=== PATIENT | male | born 1960 | race Caucasian/White ===

== ENCOUNTER → 2018-07-20 | Outpatient (CLI) | payer BC ==
--- NOTE | 2018-07-20 12:58 | Diagnostic Imaging Report ---
INDICATION: Dry cough. FINDINGS: The lungs are clear. The heart size and vascularity are normal. There is no effusion or pneumothorax. IMPRESSION: No acute appearing abnormality. Dictated by: Dictated on workstation # [id number]
== END ==
LOC: RAD FS 12:42
PROVIDERS: ATTEND Family Medicine
DX: K21.9 Gastro-esophageal reflux disease without esophagitis (principal)
CPT/HCPCS: 71046

== ENCOUNTER → 2019-05-12 | Outpatient (CLI) | payer BC ==
[2019-05-12 10:46] LABS: ALKALINE PHOSPHATASE 66 U/L (40-136); BILIRUBIN,TOTAL 0.7 MG/DL (0.1-1.0); BUN/CREATININE RATIO 20; CALCIUM 9.9 MG/DL (8.5-10.1); CARBON DIOXIDE 25 MMOL/L (21-32); CHLORIDE 100 MMOL/L (98-107); CREATININE SERUM 0.87 MG/DL (0.60-1.30); GFR ESTIMATED > 60; GLUCOSE 106 MG/DL (70-105); POTASSIUM 4.5 MMOL/L (3.6-5.0); SODIUM 138 MMOL/L (135-145)
[2019-05-12 10:47] LABS: ALANINE AMINOTRANSFERASE 34 U/L (0-55); ALBUMIN 4.3 GM/DL (3.2-4.5); TOTAL PROTEIN 7.9 GM/DL (6.4-8.2)
[2019-05-12 15:18] LABS: CHOLESTEROL 140 MG/DL (< 200); HDL CHOLESTEROL 33 MG/DL (40-60); TRIGLYCERIDES 85 MG/DL (<150); VLDL CHOLESTEROL 17 MG/DL (5-40)
== END ==
LOC: LAB FS 08:27
PROVIDERS: ATTEND Family Medicine
DX: Z00.00 Encounter for general adult medical examination without abnormal findings (principal)
CPT/HCPCS: 36415; 80053; 80061

== ENCOUNTER → 2019-05-12 | Outpatient (CLI) | payer BC ==
--- NOTE | 2019-05-12 14:12 | Diagnostic Imaging Report ---
CLINICAL HISTORY: Left heel pain for one week. COMPARISON: None TECHNIQUE: 2 views of the left foot. FINDINGS: There is no acute fracture or dislocation of the left foot. Alignment is anatomic. The imaged joint spaces are preserved. A bone spur is noted at the attachment of the Achilles tendon on the calcaneus. The surrounding soft tissues are unremarkable. IMPRESSION: 1. No acute fracture or dislocation in the left foot. Dictated by: Dictated on workstation # [id number]
== END ==
LOC: RAD FS 11:53
PROVIDERS: ATTEND Family Medicine
DX: M79.672 Pain in left foot (principal)
CPT/HCPCS: 73620

== ENCOUNTER → 2019-05-12 | Outpatient (CLI) | payer BC ==
[2019-05-12 15:19] LABS: PHOSPHORUS 3.8 MG/DL (2.3-4.7)
[2019-05-12 15:56] LABS: ALBUMIN 4.5 GM/DL (3.2-4.5); BUN/CREATININE RATIO 18; CALCIUM 9.7 MG/DL (8.5-10.1); CARBON DIOXIDE 25 MMOL/L (21-32); CHLORIDE 103 MMOL/L (98-107); CREATININE SERUM 0.91 MG/DL (0.60-1.30); GFR ESTIMATED > 60; GLUCOSE 98 MG/DL (70-105); MAGNESIUM 1.9 MG/DL (1.6-2.4); POTASSIUM 4.4 MMOL/L (3.6-5.0); SODIUM 138 MMOL/L (135-145)
== END ==
LOC: LAB FS 08:06
PROVIDERS: ATTEND Internal Medicine Critical Care Medicine
DX: I10 Essential (primary) hypertension (principal)
CPT/HCPCS: 36415; 80069; 83735

== ENCOUNTER 2019-10-10 05:34 | Outpatient (CLI) | payer BC ==
[~2019-10-10] VITALS: Ht 180 cm; Wt 121.8 kg
[2019-10-10] MEDS ORDERED: PRAV40TA2 PO (12:11)
[2019-10-10] MEDS ORDERED: HYDR12.56 PO (12:11)
[2019-10-10] MEDS ORDERED: MULT-1102 PO (12:11)
[2019-10-10] MEDS ORDERED: EZET10TA17 PO (12:11)
[2019-10-10] MEDS ORDERED: AMLO5TAB9 PO (12:11)
[2019-10-10] MEDS ORDERED: ASPI-999 PO (12:11)
== END 2019-10-10 12:24 ==
LOC: PREOP 05:34
PROVIDERS: ATTEND Surgery
DX: Z01.818 Encounter for other preprocedural examination (principal); K42.9 Umbilical hernia without obstruction or gangrene

== ENCOUNTER 2019-10-13 11:28 | Day surgery (SDC) | payer BC ==
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
[~2019-10-13] VITALS: Ht 180 cm; Wt 121.0 kg
[2019-10-13] VITALS (9 sets, daily range): BP systolic 129–180; BP diastolic 73–87
[~2019-10-13 11:28] MED LIST: AMLO5TAB9 PO; ASPI-999 PO; EZET10TA17 PO; HYDR12.56 PO; MULT-1102 PO; PRAV40TA2 PO
--- NOTE | 2019-10-13 11:49 | Progress Note-Pre Operative ---
Pre-Operative Progress Note H&P Reviewed The H&P was reviewed, patient examined and no changes noted. Date Seen by Provider: Oct 13, 2019 Time Seen by Provider: 11:30 Date H&P Reviewed: Oct 13, 2019 Time H&P Reviewed: 11:30 Pre-Operative Diagnosis: umbilical hernia MAHESH FALK MD Oct 13, 2019 11:49
[2019-10-13] MEDS ORDERED: HYDR-3817 PO (11:51)
--- NOTE | 2019-10-13 11:51 | Discharge Inst-Surgical ---
D/C Lap Instructions-DEYA New, Converted, or Re-Newed RX: RX on Chart Follow Up Appt in 2 weeks Activity as tolerated No driving for 24 hours No driving while on pain medications Incentive Spirometry use every 2 hours while awake Regular Diet Symptoms to Report: Fever over 101 degree F, Nausea/Vomiting Infection Signs and Symptoms to report: Increased redness, Foul odor of wound, Increased drainage Bathing instructions: May shower Operative Area Clean/Dry; Keep incision clean/dry If any problems/questions: Contact your physician or go to Emergency Room MAHESH FALK MD Oct 13, 2019 11:51
[2019-10-13] MEDS ORDERED: ACETAMINOPHEN 325 MG TABLET PO PRN (12:00)
[2019-10-13] MEDS ORDERED: ceFAZolin 2 GM IV Premixed 50 ML IV ONE (12:00)
[2019-10-13] MEDS ORDERED: ONDANSETRON 4 MG/2 ML (SDV) Z0FRAN IVP PRN ×2 (12:00→16:15)
[2019-10-13] MEDS ORDERED: morphine INJ 10 MG/ML 1ML (SYR OR VIAL) IVP PRN ×2 (12:00)
[2019-10-13] MEDS ORDERED: MIDAZOLAM 2 MG/2 ML (VERSED) VIAL ONE ×2 (12:10→13:40)
[2019-10-13] MEDS ORDERED: LIDOCAINE PF 1% 5 ML (XYLOCAINE) AMP ONE (12:20)
--- OUTSIDE RECORDS SUMMARY | 2019-10-13 12:23 | XMS REPORT | Continuity of Care Document ---
Author Organization Unknown Address Unknown Phone Unavailable Allergies Active Description Code Type Severity Reaction Onset Reported/Identified Relationship to Patient Clinical Status Yes niacin [id number] Drug Allergy Mild RASH 10/10/2019 Medications There is no data. Problems Date Dx Coded Attending Type Code Diagnosis Diagnosed By 07/21/2018 MEDARDO BETHEA MD, Ot K21.9 GASTRO-ESOPHAGEAL REFLUX DISEASE WITHOUT 08/05/2018 MEDARDO BETHEA MD, Ot K21.9 GASTRO-ESOPHAGEAL REFLUX DISEASE WITHOUT 05/25/2019 EVERARDO MCKEON MD Ot I10 ESSENTIAL (PRIMARY) HYPERTENSION 05/25/2019 BEBA SY MD, Ot Z00.00 ENCNTR FOR GENERAL ADULT MEDICAL EXAM W/ 06/06/2019 BEBA SY MD, Ot M79.672 PAIN IN LEFT FOOT 08/23/2019 EVERARDO MCKEON MD Ot I10 ESSENTIAL (PRIMARY) HYPERTENSION 10/12/2019 MAHESH FALK MD Ot K42.9 UMBILICAL HERNIA WITHOUT OBSTRUCTION OR 10/12/2019 MAHESH FALK MD Ot Z01.81 8 ENCOUNTER FOR OTHER PREPROCEDURAL EXAMIN Procedures There is no data. Results Test Result Range Serum or plasma renal function panel (Na , K, Cl, CO2, BUN, Cr, glucose,Ca, phos, alb) - 05/12/19 08:40 Serum or plasma sodium measurement (moles/volume) 138 mmol/L 135-145 Serum or plasma potassium measurement (moles/volume) 4.4 mmol/L 3.6-5.0 Serum or plasma chloride measurement (moles/volume) 103 mmol/L 98-107 Carbon dioxide 25 mmol/L 21-32 Serum or plasma anion gap determination (moles/volume) 10 mmol/L 5-14 Serum or plasma urea nitrogen measurement (mass/volume ) 16 mg/dL 7-18 Serum or plasma creatinine measurement (mass/volume) 0.91 mg/dL 0.60-1.30 Serum or plasma urea nitrogen/creatinine mass ratio 18 NRG Serum or plasma creatinine measurement w ith calculation of estimated glomerular filtration rate > NRG Serum or plasma glucose measurement (mass/volume) 98 mg/dL 70-105 Serum or plasma calcium measurement (mass/volume) 9.7 mg/dL 8.5-10.1 Serum or plasma albumin measurement (mass/volume) 4.5 g/dL 3.2-4.5 Serum or plasma phosphate measurement (mass/volume) 3.8 mg/dL 2.3-4.7 Magnesium - 05/12/19 08:40 Magnesium 1.9 mg/dL 1.6-2.4 Encounters ACCT No. Visit Date/Time Discharge Status Pt. Type Provider Facility Loc./Unit Complaint [id number] 10/05/2018 11:30:00 10/05/2018 23:59: 59 CLS Outpatient [facility] [id number] 10/10/2019 05:34:00 12:24:00 DIS Outpatient MAHESH FALK MD [facility] PREOP UMBILICAL HERNIA [id number] 05/12/2019 11:53:00 23:59:59 CLS Outpatient BEBA SY MD [facility] RAD FS PAIN IN LEFT HEEL [id number] 05/12/2019 08:27:00 23:59:59 CLS Outpatient BEBA SY MD [facility] LAB FS ANNUAL PHYSICAL EXAM [id number] 05/12/2019 08:06:00 23:59:59 CLS Outpatient EVERARDO MCKEON MD [facility] LAB FS HYPERTENSION [id number] 07/20/2018 12:42:00 23:59:59 CLS Outpatient MEDARDO BETHEA MD [facility] RAD FS K21.9 [id number] 10/13/2019 10:45:00 P EN Preadmit MAHESH FALK MD [facility] [place] SDC UMBILICAL HERNIA
[2019-10-13] MEDS: LACTATED RINGERS 1,000 ML IV PRN ×2 (12:27→15:55)
[2019-10-13] MEDS ORDERED: BUP/EPI 0.5% 1:200,000 (MARCAINE) 10ML VIAL IJ ONE (12:35)
[2019-10-13] MEDS ORDERED: fentaNYL INJECTION 100 MCG/2 ML AMP ONE ×2 (13:39→13:42)
[2019-10-13] MEDS ORDERED: ONDANSETRON 4 MG/2 ML (SDV) Z0FRAN ONE (13:49)
[2019-10-13] MEDS ORDERED: SEVOFLURANE (ULTANE) 15 ML INHAL SOLN ONE ×4 (13:50→15:58)
[2019-10-13] MEDS ORDERED: ROCURONIUM 10 MG/ML 5 ML SYRINGE IV ONE (15:44)
[2019-10-13] MEDS ORDERED: SUCCINYLCHOLINE INJ 100 MG/5 ML SYR ONE (15:44)
--- NOTE | 2019-10-13 15:46 | Progress Note-Post Operative ---
Post-Operative Progess Note Surgeon (s)/Material Mixer (s) Surgeon MAHESH FALK MD Material Mixer: montse boyd MAIL DELIVERER Pre-Operative Diagnosis umbilical hernia Post-Operative Diagnosis same Procedure & Operative Findings Date of Procedure 10/13/19 Procedure Performed/Findings umbilical hernia repair with mesh. Anesthesia Type get Estimated Blood Loss Estimated blood loss (mL): minimal Specimens/Packing Specimens Removed none MAHESH FALK MD Oct 13, 2019 15:46
[2019-10-13] MEDS ORDERED: GLYCOPYRROLATE 0.2 MG/ML (ROBINUL) 2 ML VIAL ONE (15:58)
[2019-10-13] MEDS ORDERED: PROPOFOL INJECTION 50 ML IV ONE (15:58)
[2019-10-13] MEDS ORDERED: NEOSTIGMINE 3 MG/3 ML VIAL ONE (15:58)
[2019-10-13] MEDS ORDERED: LIDOCAINE PF 2% 5 ML (XYLOCAINE) VIAL ONE (15:58)
[2019-10-13] MEDS ORDERED: fentaNYL INJECTION 100 MCG/2 ML AMP IVP ONE (16:15)
[2019-10-13] MEDS: oxyCODONE/APAP 5/325MG (PERCOCET 5) TABLET PO PRN ×2 (17:24→17:41)
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
== END 2019-10-13 18:25 | disposition home or self-care (01) ==
LOC: SDC 11:28
PROVIDERS: ATTEND Surgery
DX: K42.0 Umbilical hernia with obstruction, without gangrene (principal); I10 Essential (primary) hypertension; K21.9 Gastro-esophageal reflux disease without esophagitis; E78.00 Pure hypercholesterolemia, unspecified; M19.91 Primary osteoarthritis, unspecified site; E78.5 Hyperlipidemia, unspecified; G47.33 Obstructive sleep apnea (adult) (pediatric); E66.9 Obesity, unspecified; Z68.38 Body mass index [BMI] 38.0-38.9, adult; Z79.899 Other long term (current) drug therapy; Z79.82 Long term (current) use of aspirin; Z11.2 Encounter for screening for other bacterial diseases
CPT/HCPCS: 87081

== ENCOUNTER → 2019-10-28 | Outpatient (CLI) | payer BC ==
[~2019-10-28] MED LIST changes: +HYDR-3817 PO
[2019-10-28 10:36] LABS: ALANINE AMINOTRANSFERASE 26 U/L (0-55); ALKALINE PHOSPHATASE 61 U/L (40-136); BILIRUBIN,TOTAL 0.5 MG/DL (0.1-1.0); BUN/CREATININE RATIO 19; CALCIUM 9.5 MG/DL (8.5-10.1); CARBON DIOXIDE 25 MMOL/L (21-32); CHLORIDE 102 MMOL/L (98-107); CREATININE SERUM 0.86 MG/DL (0.60-1.30); GFR ESTIMATED > 60; GLUCOSE 112 MG/DL (70-105); POTASSIUM 4.4 MMOL/L (3.6-5.0); SODIUM 138 MMOL/L (135-145); TOTAL PROTEIN 7.5 GM/DL (6.4-8.2)
[2019-10-28 14:46] LABS: CHOLESTEROL 163 MG/DL (< 200); HDL CHOLESTEROL 33 MG/DL (40-60); TRIGLYCERIDES 115 MG/DL (<150); VLDL CHOLESTEROL 23 MG/DL (5-40)
== END ==
LOC: LAB FS 08:41
PROVIDERS: ATTEND Family Medicine
DX: E11.9 Type 2 diabetes mellitus without complications (principal)
CPT/HCPCS: 36415; 80053; 80061

== ENCOUNTER → 2019-10-28 | Outpatient (CLI) | payer BC ==
[2019-10-28 10:24] LABS: ALANINE AMINOTRANSFERASE 26 U/L (0-55); ALKALINE PHOSPHATASE 61 U/L (40-136); BILIRUBIN,TOTAL 0.5 MG/DL (0.1-1.0); BUN/CREATININE RATIO 19; CALCIUM 9.5 MG/DL (8.5-10.1); CARBON DIOXIDE 25 MMOL/L (21-32); CHLORIDE 102 MMOL/L (98-107); CREATININE SERUM 0.86 MG/DL (0.60-1.30); GFR ESTIMATED > 60; GLUCOSE 112 MG/DL (70-105); POTASSIUM 4.4 MMOL/L (3.6-5.0); SODIUM 138 MMOL/L (135-145); TOTAL PROTEIN 7.5 GM/DL (6.4-8.2)
[2019-10-28 10:25] LABS: BASOPHILS % (AUTO) 2 % (0-10); HEMATOCRIT 50 % (40-54); HEMOGLOBIN 16.9 G/DL (13.3-17.7); LYMPHOCYTES % (AUTO) 33 % (12-44); MEAN CORPUSCULAR HEMOGLOBIN 30 PG (25-34); MEAN CORPUSCULAR HGB CONC 34 G/DL (32-36); MEAN CORPUSCULAR VOLUME 91 FL (80-99); MEAN PLATELET VOLUME 9.9 FL (7.4-10.4); MONOCYTES % (AUTO) 10 % (0-12); NEUTROPHILS % (AUTO) 47 % (42-75); PLATELET COUNT 377 10^3/uL (130-400); RED CELL DISTRIBUTION WIDTH 13.6 % (10.0-14.5); WHITE BLOOD COUNT 10.6 10^3/uL (4.3-11.0)
[2019-10-28 10:26] LABS: BASOPHILS # (AUTO) 0.2 10^3/uL (0.0-0.1); EOSINOPHILS # (AUTO) 0.9 10^3/uL (0.0-0.3); EOSINOPHILS % (AUTO) 8 % (0-10); LYMPHOCYTES # (AUTO) 3.5 X 10^3 (1.0-4.0); MONOCYTES # (AUTO) 1.1 X 10^3 (0.0-1.0)
[2019-10-28 14:44] LABS: CHOLESTEROL 163 MG/DL (< 200); HDL CHOLESTEROL 33 MG/DL (40-60); TRIGLYCERIDES 115 MG/DL (<150); VLDL CHOLESTEROL 23 MG/DL (5-40)
[2019-10-28 15:05] LABS: FREE T4 (FREE THYROXINE) 0.89 NG/DL (0.70-1.48)
== END ==
LOC: LAB FS 08:44
PROVIDERS: ATTEND Internal Medicine Critical Care Medicine
DX: G47.33 Obstructive sleep apnea (adult) (pediatric) (principal); I25.10 Atherosclerotic heart disease of native coronary artery without angina pectoris; E78.5 Hyperlipidemia, unspecified; I10 Essential (primary) hypertension; G25.0 Essential tremor
CPT/HCPCS: 36415; 80053; 80061; 83036; 83735; 84439; 84443; 85025

== ENCOUNTER 2021-02-21 14:06 | Outpatient (CLI) | payer BC ==
[~2021-02-21] VITALS: Ht 180.3 cm; Wt 121.0 kg
[~2021-02-21 14:06] MED LIST changes: +AMLO-250 PO; -AMLO5TAB9 PO
[2021-02-21 14:19] VITALS: BP 141/69
[2021-02-21] MEDS ORDERED: ACETAMINOPHEN 500 MG TAB (TYLENOL) PO PRN (14:30)
[2021-02-21] MEDS ORDERED: EPINEPHrine INJECTION 1 MG/ML AMP IM PRN (14:30)
[2021-02-21] MEDS ORDERED: ONDANSETRON 4 MG/2 ML (SDV) Z0FRAN IV PRN (14:30)
[2021-02-21] MEDS ORDERED: diphenhydrAMINE 50 MG/ML INJ (BENADRYL) IV PRN (14:30)
[2021-02-21] MEDS ORDERED: BAMLANIVIMAB 700 MG/ETESEVIMAB 1,400 MG IN NS IV ONE ×3 (14:30)
[2021-02-21 15:57] VITALS: BP 129/77
== END 2021-02-21 15:58 | disposition home or self-care (01) ==
LOC: INFUSION 14:06
PROVIDERS: ATTEND Registered Nurse Emergency
DX: U07.1 COVID-19 (principal)

== ENCOUNTER → 2021-02-26 | Outpatient (CLI) | payer BC ==
[2021-02-26 16:29] LABS: BASOPHILS % (AUTO) 1 % (0-10); EOSINOPHILS % (AUTO) 4 % (0-10); HEMATOCRIT 50 % (40-54); HEMOGLOBIN 16.7 g/dL (13.3-17.7); LYMPHOCYTES % (AUTO) 39 % (12-44); MEAN CORPUSCULAR HEMOGLOBIN 30 pg (25-34); MEAN CORPUSCULAR HGB CONC 34 g/dL (32-36); MEAN CORPUSCULAR VOLUME 90 fL (80-99); MEAN PLATELET VOLUME 9.9 fL (9.0-12.2); MONOCYTES % (AUTO) 13 % (0-12); NEUTROPHILS % (AUTO) 42 % (42-75); PLATELET COUNT 386 10^3/uL (130-400); WHITE BLOOD COUNT 9.1 10^3/uL (4.3-11.0)
[2021-02-26 16:30] LABS: BASOPHILS # (AUTO) 0.1 10^3/uL (0.0-0.1); EOSINOPHILS # (AUTO) 0.4 10^3/uL (0.0-0.3); LYMPHOCYTES # (AUTO) 3.6 X 10^3 (1.0-4.0); MONOCYTES # (AUTO) 1.2 X 10^3 (0.0-1.0); NEUTROPHILS # (AUTO) 3.8 X 10^3 (1.8-7.8)
[2021-02-26 16:51] LABS: ALBUMIN 4.1 GM/DL (3.2-4.5); BILIRUBIN,TOTAL 0.5 MG/DL (0.1-1.0); CALCIUM 9.2 MG/DL (8.5-10.1); CREATININE SERUM 0.96 MG/DL (0.60-1.30); POTASSIUM 4.1 MMOL/L (3.6-5.0); TOTAL PROTEIN 7.5 GM/DL (6.4-8.2)
== END ==
LOC: LAB FS 15:41
PROVIDERS: ATTEND Family Medicine
DX: U07.1 COVID-19 (principal)
CPT/HCPCS: 36415; 80053; 85025; 85379

== ENCOUNTER → 2021-06-05 | Outpatient (CLI) | payer BC ==
[~2021-06-05] MED LIST changes: +CATHETER FLUSH 10 ML SYR IV PRN; +HOLD METFORMIN - RECEIVED CONTRAST 20 ML VIAL IV SCH; +IOHEXOL 350 MG/ML 100 ML (OMNIPAQUE 350) VIAL IV ONE; +NS 100 ML (IVPB) BAG IV ONE
--- NOTE | 2021-06-05 16:06 | Diagnostic Imaging Report ---
EXAMINATION: CT abdomen and pelvis with intravenous contrast. TECHNIQUE: Multiple contiguous axial images were obtained through the abdomen and pelvis after the uneventful administration of intravenous contrast. All CT scans use one or more of the following dose optimizing techniques: automated exposure control, MA and/or KvP adjustment based on patient size and exam type or iterative reconstruction. HISTORY: Abdominal pain. COMPARISON: None available. FINDINGS: Lung bases: The lung bases are clear. Solid organs: The liver is normal without focal lesion. The gallbladder is normal. There is no biliary ductal dilation. Pancreas is normal. The spleen is nonvisualized and may be surgically absent. Subcentimeter fatty attenuating lesion within the left adrenal gland likely a small myelolipoma. Adrenal glands are otherwise unremarkable. The kidneys are normal without hydronephrosis. Bowel: The stomach and small bowel are normal without obstruction. There is wall thickening seen within the descending colon near complete inflamed diverticula (series 3 image 127). Peritoneum: There is no intraperitoneal free fluid or free air. No suspicious lymphadenopathy. Vasculature: Calcification of the aorta without aneurysm. Musculoskeletal: Degenerative changes of the spine without suspicious osseous lesion or compression fracture. Pelvis: The prostate gland is normal. The urinary bladder is normal. IMPRESSION: Wall thickening and inflammatory stranding of the descending colon near a few inflamed diverticula compatible with acute uncomplicated diverticulitis. No abscess or free air. Report was called and faxed to the office of Dr. Galilea Magana at 4:05 p.m., by leslie. Dictated by: Dictated on workstation # [id number]
== END ==
LOC: RAD FS 15:08
PROVIDERS: ATTEND Family Medicine
DX: K57.32 Diverticulitis of large intestine without perforation or abscess without bleeding (principal)
CPT/HCPCS: 74177; Q9967